=== PATIENT | male | born 2000 | race Caucasian/White ===

== ENCOUNTER 2018-09-11 19:27 | Emergency (ER) | payer BC ==
[2018-09-11 20:54] VITALS: O2SAT 99
[2018-09-11] MEDS ORDERED: PERCOCET TABLET 5/325MG PO STA (21:36)
[2018-09-11] MEDS ORDERED: Cyclobenzaprine 10 MG PO ONE (21:36)
[2018-09-11] MEDS ORDERED: DELTASONE 10 MG PO ONE (21:37)
--- NOTE | 2018-09-11 21:50 | ERPHSYRPT ---
- History of Present Illness Time Seen by Provider: 09/11/18 21:15 Source: patient, family Exam Limitations: no limitations Patient Subjective Stated Complaint: Coccyx pain Triage Nursing Assessment: Patient ambulated into ED slowly and tranferred self to bed. Patient complains of coccyx pain 9/10 when sitting. Patient states the pain is a discomfort when ambulated, but gets worse when trying to sit down or lay down. Patient was doing martial arts on 09/10/18 and hit the ground on his buttocks, but finished his work out and afterward he started having a lot of pain. No visible bruising or swelling noted. Physician History: 18 y/o white male presents with buttock/coccyx pain for one day after injury during mixed martial arts training and sparring. pt did not take anything for pain since it occurred and he can bearly move secondary to pain. Timing/Duration: yesterday Occured at: home Context: other (mixed martial arts training/sparring) Hip Pain Location: pelvis (and coccyx) Severity of Pain-Max: moderate Severity of Pain-Current: moderate Modifying Factors: Improves With: nothing Symptoms prior to fall: none Associated Symptoms: muscle aches Allergies/Adverse Reactions: No Known Drug Allergies Allergy (Unverified 09/11/18 20:51) Hx Tetanus, Diphtheria Vaccination/Date Given: No Hx Influenza Vaccination/Date Given: No Hx Pneumococcal Vaccination/Date Given: No Immunizations Up to Date: Yes - Review of Systems Constitutional: No Symptoms Eyes: No Symptoms Ears, Nose, & Throat: No Symptoms Respiratory: No Symptoms Cardiac: No Symptoms Abdominal/Gastrointestinal: No Symptoms Genitourinary Symptoms: No Symptoms Musculoskeletal: Injury, Other (buttock) Skin: No Symptoms Neurological: No Symptoms Psychological: No Symptoms Endocrine: No Symptoms Hematologic/Lymphatic: No Symptoms Immunological/Allergic: No Symptoms All Other Systems: Reviewed and Negative - Past Medical History Pertinent Past Medical History: Yes Neurological History: No Pertinent History ENT History: No Pertinent History Cardiac History: No Pertinent History Respiratory History: Asthma Endocrine Medical History: No Pertinent History Musculoskeletal History: No Pertinent History GI Medical History: No Pertinent History History: No Pertinent History Psycho-Social History: No Pertinent History Other Medical History: childhood asthma - Past Surgical History Past Surgical History: No Neuro Surgical History: No Pertinent History Cardiac: No Pertinent History Respiratory: No Pertinent History Gastrointestinal: No Pertinent History Genitourinary: No Pertinent History Musculoskeletal: No Pertinent History Male Surgical History: No Pertinent History - Social History Smoking Status: Never smoker Exposure to second hand smoke: Yes Drug Use: none Patient Lives Alone: No - Nursing Vital Signs Nursing Vital Signs: Initial Vital Signs Temperature 97.8 F 09/11/18 20:38 Pulse Rate 62 09/11/18 20:38 Respiratory Rate 18 09/11/18 20:38 Blood Pressure 101/59 09/11/18 20:38 O2 Sat by Pulse Oximetry 99 09/11/18 20:38 Pain Scale Pain Intensity 6 - Physical Exam General Appearance: mild distress, alert, anxiety Eye Exam: PERRL/EOMI, eyes nml inspection Ears, Nose, Throat Exam: normal ENT inspection, moist mucous membranes Neck Exam: normal inspection, non-tender, supple, full range of motion Respiratory Exam: normal breath sounds, lungs clear, airway intact, No chest tenderness, No respiratory distress, No accessory muscle use, No rhonchi, No wheezing, No stridor Cardiovascular Exam: regular rate/rhythm, normal heart sounds, normal peripheral pulses Gastrointestinal Exam: soft, normal bowel sounds, No tenderness, No guarding, No rebound Back Exam: normal inspection, decreased range of motion, muscle spasm, point tenderness (coccyx) Extremity Exam: normal inspection, normal range of motion, pelvis stable Neurologic Exam: alert, oriented x 3, cooperative, 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, normal mood/affect, nml cerebellar function, abnormal gait (secondary to coccyx pain) Skin Exam: normal color, warm, dry Lymphatic Exam: No adenopathy SpO2 Interpretation: normal SpO2: 99 Oxygen Delivery: Room Air - Course Nursing assessment & vital signs reviewed: Yes Ordered Tests: Active Orders 24 hr Category Date Time Status PELVIS (1 OR 2 VIEWS) Stat Exams 09/11/18 22:01 Taken SACRUM AND COCCYX Stat Exams 09/11/18 22:01 Taken Medication Summary Discontinued Medications Generic Name Dose Route Start Last Admin Trade Name Freq PRN Reason Stop Dose Admin Cyclobenzaprine HCl 10 mg 09/11/18 21:36 09/11/18 22:04 Cyclobenzaprine 10 Mg PO 09/11/18 21:37 10 mg STAT ONE Administration Cyclobenzaprine HCl Confirm 09/11/18 21:54 Cyclobenzaprine 10 Mg Administered 09/11/18 21:55 Dose 10 mg .ROUTE .STK-MED ONE Oxycodone/Acetaminophen 1 tab 09/11/18 21:36 09/11/18 22:04 Percocet Tablet 5/325mg PO 09/11/18 21:37 1 tab STAT STA Administration Oxycodone/Acetaminophen Confirm 09/11/18 21:54 Percocet Tablet 5/325mg Administered 09/11/18 21:55 Dose 1 tab .ROUTE .STK-MED ONE Prednisone 10 mg 09/11/18 21:37 09/11/18 22:05 Deltasone 10 Mg PO 09/11/18 21:38 10 mg STAT ONE Administration Prednisone Confirm 09/11/18 21:55 Deltasone 20 Mg Administered 09/11/18 21:56 Dose 20 mg .ROUTE .STK-MED ONE - Progress Progress Note: 09/11/18 23:10 xray pelvis-no acute fx or dislocation; xray sacrum and coccyx-no acute fx/ process Counseled pt/family regarding: diagnosis, need for follow-up, rad results - Departure Time of Disposition: 23:11 Departure Disposition: Home Clinical Impression: Contusion Condition: Stable Critical Care Time: No Referrals: DOCTOR,NO FAMILY [Primary Care Provider] - Additional Instructions: ice pack to area 3 times daily for 3 days. follow up with primary doctor for further management Prescriptions: Carisoprodol 350 mg [Soma 350 mg] 350 mg PO Q8H PRN PRN #10 tablet PRN Reason: Muscle Spasms Hydrocodone/APAP 5/325 [[place] 5/325 mg] 1 each PO Q8H PRN PRN #6 tablet MDD 3 PRN Reason: Pain Naproxen 500 mg [Naprosyn 500 MG] 500 mg PO BID #10 tablet
[2018-09-11] MEDS ORDERED: Cyclobenzaprine 10 MG ONE (21:54)
[2018-09-11] MEDS ORDERED: PERCOCET TABLET 5/325MG ONE (21:54)
[2018-09-11] MEDS ORDERED: DELTASONE 20 MG ONE (21:55)
[2018-09-11 23:17] VITALS: BP 122/72; PULSE 52
--- NOTE | 2018-09-12 09:06 | XRAY ---
Indication: Pain following wrestling injury. Comparison: None 3 views of the sacrum/coccyx obtained. No bony, articular, or soft tissue abnormalities. Comment: Preliminary interpretation was made by [facility]. No discrepancy.
--- NOTE | 2018-09-12 09:06 | XRAY ---
Indication: Pain following wrestling injury. Comparison: None Single AP pelvis obtained. No bony, articular, or soft tissue abnormalities.
== END 2018-09-11 23:47 | disposition home or self-care (01) ==
LOC: ED 19:27
DX: S30.0XXA Contusion of lower back and pelvis, initial encounter (principal); R10.2 Pelvic and perineal pain; M53.3 Sacrococcygeal disorders, not elsewhere classified; W18.30XA Fall on same level, unspecified, initial encounter; Y93.75 Activity, martial arts
CPT/HCPCS: 72170; 72220; 99284; A9270-GY